=== PATIENT | male | born 1960 | race Caucasian/White ===

== ENCOUNTER 2020-01-26 19:45 | Inpatient (IN) | payer MEDICARE, MEDICAID ==
[2020-01-26 21:38] LABS: Hemoglobin 14.5 g/dL (14.0-18.0); Mean Corpuscular HGB CONC 35.1 g/dL (32.0-36.0); Mean Corpuscular Hemoglobin 33.5 pg (27.0-31.0); Mean Corpuscular Volume 95.4 fL (78.0-98.0); Mean Platelet Volume 7.4 fL (7.4-10.4); Platelet Count 141 thou/uL (130-400); RBC Distribution Width 11.9 % (11.5-14.5); Red Blood Cell (RBC) Count 4.31 mill/uL (4.70-6.10); White Blood Cell (WBC) Count 5.1 thou/uL (4.8-10.8)
[2020-01-26 21:55] LABS: ALT (SGPT) 13 U/L (8-55); AST (SGOT) 20 U/L (5-34); Albumin 4.1 g/dL (3.4-4.8); Alkaline Phosphatase 60 U/L (40-110); Anion Gap 17 mmol/L (10-20); BUN (Urea Nitrogen) 22 mg/dL (8.4-25.7); Bilirubin, Total 0.3 mg/dL (0.2-1.2); Calc. Creatinine Clearance 0 mL/min (70-130); Carbon Dioxide 18 mmol/L (23-31); Chloride 107 mmol/L (98-107); Estimated GFR-MDRD 67; Glucose 115 mg/dL (80-115); Potassium 4.6 mmol/L (3.5-5.1); Protein, Total 7.1 g/dL (5.8-8.1); Sodium 137 mmol/L (136-145)
[2020-01-26 21:57] LABS: Band 4 % (5-11); Eosinophils 2 % (0-10); Lymphocytes 24 % (21-51); MDiff Complete? YES; Monocytes 16 % (0-10); Neutrophil 51 % (42-75); Platelet Morphology Comment Appears Adequate; RBC Morphology Normal; Reactive Lymphocytes 3 % (0-10)
[2020-01-26] MEDS ORDERED: Ondansetron PF 4 MG/2 ML Vial ONE (23:24)
[2020-01-26] MEDS ORDERED: Ketorolac Tromethamine 30 MG/ML VIAL ONE (23:24)
[2020-01-26] MEDS ORDERED: Magnesium 2 GM/50 ML BAG (IN WATER) ONE (23:26)
--- NOTE | 2020-01-26 23:40 | RAD ---
Chest AP view INDICATION: History of tachycardia COMPARISON: None FINDINGS: Lungs: The lungs are clear Cardiac silhouette: The cardiomediastinal silhouette appears within normal limits. Pulmonary vasculature: Normal Pleural spaces: No pleural effusion or pneumothorax is demonstrated. Upper abdomen: No abnormality seen. Osseous structures: There is scattered degenerative and osteoarthritic change present. Additional findings: None. IMPRESSION: No acute cardiopulmonary abnormality.
[2020-01-26 23:55] LABS: Prothrombin Time 13.7 sec (12.0-14.7)
[2020-01-26 23:57] LABS: D-Dimer Test 2.1 *mcg/mL (0.27-0.43)
[2020-01-27] MEDS ORDERED: Metoprolol Tartrate 5 MG/5 ML VIAL ONE (00:28)
[2020-01-27 00:29] LABS: Magnesium 1.9 mg/dL (1.6-2.6)
[2020-01-27 00:51] LABS: CKMB 3.1 ng/mL (0-6.6)
[2020-01-27] MEDS ORDERED: cefTRIAXone\\ROCEPHIN 1 GM VIAL ONE ×2 (01:35→15:36)
[2020-01-27] MEDS ORDERED: Vancomycin 1 GM/200 ML BAG ONE ×2 (01:35→09:24)
[2020-01-27] MEDS ORDERED: Aspirin 325 MG TAB ONE (01:35)
[2020-01-27 03:10] LABS: Troponin I 0.015 ng/mL (< 0.028)
[2020-01-27] MEDS: Lactated Ringer's 1,000 ML IV SCH ×2 (03:45→16:13)
[2020-01-27 04:06] LABS: Bilirubin Negative (Negative); Blood, Urine Negative (Negative); Clarity Clear (Clear); Glucose, Urine (Dipstick) Normal (Negative); Ketone, Urine Negative (Negative); Leukocyte Negative Leu/uL (Negative); Nitrite Negative (Negative); Protein, Urine (Dipstick) Negative (Neg-Trace); Specific Gravity, Urine 1.031 (1.002-1.036); Urobilinogen Normal mg/dL (Less than 2); pH, Urine 6.5 (5.0-9.0)
[2020-01-27 04:24] LABS: Amphetamine Not Detected (NotDetected); Barbiturates Screen Not Detected (NotDetected); Benzodiazepine Screen Not Detected (NotDetected); Cocaine Metabolite Screen Not Detected (NotDetected); Medtox Control Line Valid? VALID (VALID); Medtox Reader # READER 4; Methadone Not Detected (NotDetected); Methamphetamine Not Detected (NotDetected); Opiate Screen Not Detected (NotDetected); Oxycodone Screen Not Detected (NotDetected); Phencyclidine (PCP) Not Detected (NotDetected); THC/Cannabinoid Screen Not Detected (NotDetected); Tricyclic Screen Detected (NotDetected)
[2020-01-27 06:50] LABS: Troponin I 0.012 ng/mL (< 0.028)
--- NOTE | 2020-01-27 08:23 | CT ---
PRELIMINARY REPORT/[facility]/EMERGENCY AFTER HOURS PROCEDURE: EXAM: CTA Chest with Intravenous Contrast CLINICAL HISTORY: TACHYCARDIAC AND HYPERTENSIVE IN PCP OFFICE - SENT HERE FOR EVALUATION TECHNIQUE: Axial CTA images of the chest with intravenous contrast. Three-dimensional MIP/volume rendered reform ations were performed. CONTRAST: With; ISOVUE 370,100mL COMPARISON: None provided. FINDINGS: The pulmonary arterial tree is nicely opacified, and no filling defect or cutoff is seen. Main pulmonary artery is 2.5 cm in maximal diameter. There is reflux of contrast into the IVC and th e hepatic veins. The ventricular ratio is less than 1 and there is borderline prominence of the righ t atrium. The intraventricular septum is not deformed. Small curvilinear subpleural densities are p resent in both lungs. The thoracic aorta is not optimally opacified, but shows no acute abnormality. There is mild tortuos ity and ectasia. The ascending portion measures 3.9 cm in diameter. Descending aorta is 3.1 cm. No rmal sized lymph nodes are identified in the mediastinal and hilar regions. The esophagus is grossly negative. There is no significant pericardial effusion. The heart is overall borderline in size. Central airways are patent. Secretions are present in the right mainstem bronchus extending into the right long. There is significant concentric thickening of the small airway reinoso on both sides. Mu cous plugging and is present, especially in the right middle lobe which is partially collapsed. Ther e is mild pleural thickening on both sides. No consolidation, pleural fluid or pneumothorax is seen. Scattered air cysts are present, to include a component of labs. Lung volumes are estimated overal l modestly prominent, but the hemidiaphragms remain convex. In the visualized upper abdomen, no acute abnormality is seen. There is a moderate amount of food in the stomach. On bone windows, no acute osseous abnormality is evident. There are multiple old rib fractures, 1 of which may have a pseudoarticulation on the right (53/3). IMPRESSION: 1. No PE. 2. Conflicting evidence for pulmonary hypertension. 3. Tortuosity and ectasia of the thoracic aorta, but no acute aortic abnormality. 4. Considerable small airway disease on both sides, with partial collapse of the right middle lobe a nd secretions and mucous plugging in the right lung. 5. Borderline hyperinflation with scattered air cysts. No pneumothorax. ELECTRONICALLY SIGNED BY: Raul Lima MD Jan 27, 2020 2:12:35 AM ACID PATROLLER This report is intended for review by the ordering physician only, in accordance of law. If you recei ve this report in error, please call [facility] at [phone]. FINAL REPORT CT PULMONARY ANGIOGRAM WITH IV CONTRAST AND 3D POST PROCESSING: I agree with the preliminary report given by Dr. Raul Lima of [facility]. POS: OFF
[2020-01-27 09:34] LABS: SARS-CoV-2 MS2 Positive; SARS-CoV-2 N Gene Negative; SARS-CoV-2 S Gene Negative; SARS-CoV-2 by NAA Not Detected (NotDetected); SARS-CoV-2 orf1ab Negative
[2020-01-27] MEDS ORDERED: Metoprolol Tartrate 50 MG TAB PO SCH (10:00)
[2020-01-27] MEDS ORDERED: Vancomycin 1 GM in Premix Bag 1 BAG IVPB SCH (10:00)
--- NOTE | 2020-01-27 10:07 | PDOC.HHP ---
Hospitalist HPI - History of Present Illness History of Present Illness: ADMISSION DATE: 01/27/2020 TIME OF ASSESSMENT: 09:15 PRIMARY CARE PHYSICIAN: Karolina CHIEF COMPLAINT: Fast heart rate HPI: Patient is a 59-year-old male past medical history significant for HIV, cardiac arrhythmias, and IV drug use. He presents to the ER today after he went to his primary care physician for a physical and was found that he was tachycardic. He denied any chest pain, shortness of breath, lightheadedness, dizziness. He did not realize his heart rate was going fast until the physician told him after they completed vital signs. He states that this has happened in the past and he is on metoprolol to regulate his blood pressure and heart rate although he does not know the dosage. He states that he is not on any anticoa gulant as he has a history of falling, currently having to use a walker to ambulate. It has been many years since he has seen a rn peritoneal dialysis. Patient does state that he has had an ongoing nonproductive cough and endorses orthopnea and pedal edema. He denies any fever or contact with sick persons. Patient does have a history of IV methamphetamine and cocaine use along with heavy alcohol use and heavy tobacco use. He has not used any illicit drugs in 3 to 4 months and states he has not had any alcohol or tobacco in the past 2 weeks. Patient does state he is compliant with his HIV and blood pressure medication. ED COURSE: Vital Signs: Blood pressure 163/130, pulse 111, respiratory rate 17, temperature 98.6 oral, O2 saturation 100% on room air Today in the ER they completed a chest and thorax CTA, chest x-ray, lab work, and medication ministration. He was administered ceftriaxone 1 g IV, vancomycin 1 g IV, aspirin 325 mg p.o., magnesium 2 g IV, metoprolol tartrate 2.5 mg IV, 1 L normal saline, Zofran 4 mg IV, ketorolac 15 mg IV. PAST MEDICAL HISTORY: Hypertension, cirrhosis, pancreatitis, HIV, irregular heart rhythm, anxiety, depression PAST SURGICAL HISTORY: Back surgeries, colostomy and reversal SOCIAL HISTORY: Patient currently staying at [facility]. Has a history of metha mphetamine and cocaine use but has not used in 3 to 4 years. Has a heavy history of alcohol use and has not used in 2 weeks. He states he would drink "whatever he can get his hands on" in the past. Heavy smoking history, 35-year use of at least a pack per day, has not smoked in 2 weeks. Patient uses a walker to ambulate and has frequent falls. FAMILY HISTORY: Unknown ALLERGIES: Cardene CURRENT MEDICATIONS: Unknown, calling PCP to verify meds Patient knows he takes metoprolol but does not know the dosage Hospitalist ROS - Review of Systems Respiratory: reports: cough Cardiovascular: reports: palpitations, orthopnea, edema All other systems reviewed; all pertinent +/- noted in HPI/Subj - Medication Medications: Active Medications Generic Name Dose Route Start Last Admin Trade Name Freq PRN Reason Stop Dose Admin Lactated Ringer's 1,000 mls @ 125 mls/hr 01/27/20 03:45 01/27/20 03:45 Lactated Ringer's IV 01/27/20 15:45 1,000 mls .Q8H SUKUMAR Administration - Exam General Appearance: NAD, awake alert Eye: PERRL ENT: normocephalic atraumatic Heart: RRR, no murmur, no gallops, no rubs, normal peripheral pulses Respiratory: normal chest expansion, no tachypnea, rhonchi Gastrointestinal: soft, non-tender, normal bowel sounds Gastrointestinal - other findings: Reducible hernia Extremities: no edema Neurological: no focal deficits Musculoskeletal: generalized weakness Psychiatric: A&O x 3 Hospitalist Results - Labs Result Diagrams: 01/27/20 10:19 01/27/20 10:19 Lab results: WBC 5.1 thou/uL (4.8-10.8) 01/26/20 21:24 Hgb 14.5 g/dL (14.0-18.0) 01/26/20 21:24 Hct 41.1 % (42.0-52.0) L 01/26/20 21:24 MCV 95.4 fL (78.0-98.0) 01/26/20 21:24 Plt Count 141 thou/uL (130-400) 01/26/20 21:24 Band Neuts % (Manual) 4 % (5-11) L 01/26/20 21:24 Sodium 137 mmol/L (136-145) 01/26/20 21:24 Potassium 4.6 mmol/L (3.5-5.1) 01/26/20 21:24 Chloride 107 mmol/L (98-107) 01/26/20 21:24 Carbon Dioxide 18 mmol/L (23-31) L 01/26/20 21:24 BUN 22 mg/dL (8.4-25.7) 01/26/20 21:24 Creatinine 1.11 mg/dL (0.7-1.3) 01/26/20 21:24 Glucose 115 mg/dL (80-115) 01/26/20 21:24 Lactic Acid 1.0 mmol/L (0.5-2.2) 01/26/20 23:50 Calcium 9.0 mg/dL (7.8-10.44) 01/26/20 21:24 Total Bilirubin 0.3 mg/dL (0.2-1.2) 01/26/20 21:24 AST 20 U/L (5-34) 01/26/20 21:24 ALT 13 U/L (8-55) 01/26/20 21:24 Alkaline Phosphatase 60 U/L (40-110) 01/26/20 21:24 CK-MB (CK-2) 3.1 ng/mL (0-6.6) 01/26/20 23:50 Troponin I 0.012 ng/mL (< 0.028) 01/27/20 05:52 Serum Total Protein 7.1 g/dL (5.8-8.1) 01/26/20 21:24 Albumin 4.1 g/dL (3.4-4.8) 01/26/20 21:24 Lipase 33 U/L (8-78) 01/26/20 23:50 Urine Ketones Negative mg/dL (Negative) 01/27/20 03:33 Urine Blood Negative (Negative) 01/27/20 03:33 Urine Nitrite Negative (Negative) 01/27/20 03:33 Ur Leukocyte Esterase Negative Sonal/uL (Negative) 01/27/20 03:33 - Radiology Interpretation Chest x-ray Status: image reviewed by me, report reviewed by me Additional Comment: IMPRESSION: No acute cardiopulmonary abnormality. CT scan - chest Status: image reviewed by me, report reviewed by me Additional Comment: Impression: 1. No PE 2. Conflicting evidence for pulmonary hypertension 3. Tortuosity and ectasia of the thoracic aorta but no acute aortic abnormality 4. Considerable small airway disease on both sides with partial collapse of the right middle lobe and secretions and mucous plugging in the right lung 5. Borderline hyper inflation with scattered air status, no pneumothorax Hospitalist H&P A/P - Plan Plan: #Tachycardia Asymptomatic, pulse currently in the 80s Cardiology consultation Echo pending Monitor on telemetry #Elevated troponin Denies chest pain or SOB Possibly elevated from demand with tachycardia Continue to trend x3 #Hypertension Restart home medications once reconciled Monitor q4hr #Atypical pneumonia IV antibiotics ID consult Blood and urine cultures obtained #HIV CD4 and labs ordered Infectious disease consult requested #Tobacco and alcohol recent history, illicit drug use history Monitor for withdrawals CODE STATUS: Full Surrogate decision-maker is his daughter, Keiry Patient and plan discussed with Dr. Urrutia
[2020-01-27] MEDS ORDERED: Iopamidol-370 76% 500 ML 1 ML ONE (10:15)
[2020-01-27 10:34] LABS: #Eosinphils 0.1 thou/uL (0.0-0.7); #Lymphocytes 1.5 thou/uL (1.20-3.40); #Monocytes 0.5 thou/uL (0.11-0.59); #Neutrophils 2.5 thou/uL (1.40-6.50); %Basophils 0.7 % (0.0-1.0); %Eosinophils 2.5 % (0.0-10.0); %Lymphocytes 32.8 % (21.0-51.0); %Monocytes 10.1 % (0.0-10.0); %Neutrophils 53.9 % (42.0-75.0); Hemoglobin 14.9 g/dL (14.0-18.0); Mean Corpuscular HGB CONC 34.3 g/dL (32.0-36.0); Mean Corpuscular Hemoglobin 33.6 pg (27.0-31.0); Mean Corpuscular Volume 97.9 fL (78.0-98.0); Mean Platelet Volume 7.3 fL (7.4-10.4); Platelet Count 126 thou/uL (130-400); RBC Distribution Width 11.8 % (11.5-14.5); Red Blood Cell (RBC) Count 4.43 mill/uL (4.70-6.10); White Blood Cell (WBC) Count 4.6 thou/uL (4.8-10.8)
[2020-01-27 10:54] LABS: Anion Gap 13 mmol/L (10-20); BUN (Urea Nitrogen) 18 mg/dL (8.4-25.7); Calc. Creatinine Clearance 0 mL/min (70-130); Calcium 8.8 mg/dL (7.8-10.44); Carbon Dioxide 24 mmol/L (23-31); Chloride 105 mmol/L (98-107); Estimated GFR-MDRD 68; Glucose 121 mg/dL (80-115); Potassium 4.2 mmol/L (3.5-5.1); Sodium 138 mmol/L (136-145)
[2020-01-27 11:18] LABS: HBCM Index 0.06 S/CO (0-0.79); HBSAg Index 0.18 S/CO (0-0.99); Hep A IgM AB Non-Reactive (NonReactive); Hep A IgM S/CO 0.22 S/CO (0-0.79); Hep B Surf Ag Non-Reactive S/CO (NonReactive); Hepatitis B Core IgM Abs Non-Reactive (NonReactive)
[2020-01-27 11:22] LABS: Hep C IgG Ab Reflex HepC Qnt (NonReactive); Hep C Index 13.76 S/CO (0-0.79)
[2020-01-27] MEDS ORDERED: cefTRIAXone\\ROCEPHIN 1 GM in Sodium Chloride 0.9% 100 ML IVPB SCH (13:00)
[2020-01-27] MEDS ORDERED: Metoprolol Tartrate 50 MG TAB ONE (15:37)
[2020-01-27] MEDS: Metoprolol Tartrate 50 MG TAB PO SCH (21:41)
[2020-01-27 22:02] VITALS: BMI 26.4
[2020-01-27 23:37] LABS: Legionella Urinary Ag Negative (Negative); Strep pneumo Urine Ag NEGATIVE (NEGATIVE)
[2020-01-28 05:04] LABS: #Eosinphils 0.2 thou/uL (0.0-0.7); #Lymphocytes 1.6 thou/uL (1.20-3.40); #Monocytes 0.7 thou/uL (0.11-0.59); #Neutrophils 2.5 thou/uL (1.40-6.50); %Basophils 0.5 % (0.0-1.0); %Eosinophils 3.5 % (0.0-10.0); %Lymphocytes 32.1 % (21.0-51.0); %Monocytes 13.5 % (0.0-10.0); %Neutrophils 50.5 % (42.0-75.0); Hemoglobin 14.3 g/dL (14.0-18.0); Mean Corpuscular HGB CONC 34.8 g/dL (32.0-36.0); Mean Corpuscular Hemoglobin 33.4 pg (27.0-31.0); Mean Corpuscular Volume 95.9 fL (78.0-98.0); Mean Platelet Volume 7.5 fL (7.4-10.4); Platelet Count 137 thou/uL (130-400); Red Blood Cell (RBC) Count 4.29 mill/uL (4.70-6.10)
[2020-01-28 05:21] LABS: Anion Gap 12 mmol/L (10-20); BUN (Urea Nitrogen) 16 mg/dL (8.4-25.7); Calc. Creatinine Clearance 102 mL/min (70-130); Calcium 8.8 mg/dL (7.8-10.44); Carbon Dioxide 23 mmol/L (23-31); Chloride 106 mmol/L (98-107); Estimated GFR-MDRD 81; Glucose 86 mg/dL (80-115); Potassium 4.1 mmol/L (3.5-5.1); Sodium 137 mmol/L (136-145)
[2020-01-28] MEDS: Aspirin Chewable 81 MG TAB PO SCH (08:52)
[2020-01-28] MEDS: Metoprolol Tartrate 50 MG TAB PO SCH ×2 (08:53→20:24)
--- NOTE | 2020-01-28 11:54 | PDOC.HOSPP ---
- Subjective Encounter Date: 01/28/20 Encounter Time: 11:52 Subjective: 59-year-old patient who is admitted to the hospital after he was sent in due to tachycardia. He is largely asymptomatic. His tachycardia was discovered at a routine follow-up visit with his primary care provider. He does have significant history for substance abuse with a drug of choice being methamphetamine, he also has a history of alcohol abuse, he has been known to be a smoker but he is in the process of quitting he says. At any rate he has been afebrile. He had a CT of the chest obtained which did not show any evidence of pulmonary embolus. He does have suspected airway disease. He is on IV empiric antibiotics and cultures were collected on admission. - Objective Vital Signs & Weight: Vital Signs (12 hours) Temp Pulse Resp BP Pulse Ox 01/28/20 08:00 96 01/28/20 07:00 98.6 F 100 18 145/98 H 96 01/28/20 03:06 98.2 F 61 18 142/86 H 95 Weight Weight 191 lb 11.2 oz I&O: 01/27/20 01/28/20 01/29/20 06:59 06:59 06:59 Intake Total 580 Output Total 1300 Balance -720 Result Diagrams: 01/28/20 04:09 01/28/20 04:09 Radiology Reviewed by me: Yes EKG Reviewed by me: Yes Hospitalist ROS - Review of Systems ROS unobtainable: due to mental status Constitutional: reports: weakness, malaise Respiratory: reports: shortness of breath, SOB with excertion - Medication Medications: Active Medications Generic Name Dose Route Start Last Admin Trade Name Ariela PRN Reason Stop Dose Admin Aspirin 81 mg 01/28/20 09:00 01/28/20 08:52 Aspirin Chewable 81 Mg Tab PO 81 mg DAILY SUKUMAR Administration Doxycycline Hyclate 100 mg/ 100 mls @ 100 mls/hr 01/28/20 06:00 01/28/20 06:49 Sodium Chloride IVPB 100 mls 0600,1800 SUKUMAR Administration Metoprolol Tartrate 50 mg 01/27/20 21:00 01/28/20 08:53 Metoprolol Tartrate 50 Mg Tab PO 50 mg BID SUKUMAR Administration - Exam General Appearance: awake alert, ill appearing Eye: PERRL, anicteric sclera ENT: normocephalic atraumatic, no oropharyngeal lesions, moist mucosa Neck: supple, symmetric, no JVD, no thyromegaly, no lymphadenopathy Heart: RRR, no murmur, no gallops, no rubs, normal peripheral pulses Respiratory: CTAB, no wheezes, no rales, no ronchi, normal chest expansion Gastrointestinal: soft, non-tender, non-distended, normal bowel sounds Neurological: cranial nerve grossly intact Musculoskeletal: normal tone Psychiatric: normal affect, normal behavior, A&O x 3 Hosp A/P (1) Tachycardia Code(s): R00.0 - TACHYCARDIA, UNSPECIFIED Status: Acute Plan: Cardiology was asked to evaluate him for the sinus tachycardia. Formal consult is still pending. Echocardiogram will be obtained. (2) History of substance abuse Code(s): F19.11 - OTHER PSYCHOACTIVE SUBSTANCE ABUSE, IN REMISSION Status: Acute Plan: He is trying to quit. (3) Tobacco dependence Code(s): F17.200 - NICOTINE DEPENDENCE, UNSPECIFIED, UNCOMPLICATED Status: Acute Plan: He was counseled about smoking cessation's. - Plan old records reviewed/req, PT/OT, social sciences professor
--- NOTE | 2020-01-28 14:51 | CON ---
DATE OF CONSULTATION: 01/28/2020 REASON FOR CONSULTATION: HIV and hepatitis C seropositive status with tachyarrhythmia. HISTORY OF PRESENT ILLNESS: A 59-year-old who lives around [facility] and has a longstanding history of HIV seropositive status since 1983. He also has been hepatitis C positive, but was treated and cured of hepatitis C with one of the new direct acting antiviral drugs recently. He has been on antiretroviral therapy for decades now and the most recent regimen is Biktarvy and according to the patient, his viral load was suppressed as recently as a few months ago. He does not recall his CD4 cell count. He has been admitted to [facility] and has not smoked in 2 weeks and there is a question about him using drugs again, but that he denied any relapse of meth or cocaine use. The patient was found to have been tachycardic by a routine check from the staff at the [facility] and he was not feeling any different then, otherwise would not have come to the emergency room. On arrival, his BP was 150/109, pulse 122, respirations 20, temperature 97.8, and O2 saturation 99% on room air. He did not appear in distress, but he was in some mild pain, was alert, oriented. Lungs were clear. Heart exam normal except for tachycardia which was regular. Abdomen soft and a little bit of spine tenderness. PAST MEDICAL HISTORY: Chronic hep C, treated and cured reportedly recently. Longstanding HIV infection since 1983. He does not recall his CD4 cell count. His viral load was undetectable recently, on Biktarvy. Hypertension, polysubstance use, mostly methamphetamine. Apparently, he had a colostomy in the past, which was taken down. It is not clear the reason for it. SOCIAL HISTORY: He lives in the [facility]. He is here because of rehab, admitted to [facility]. Quit smoking 2 weeks ago. ALLERGIES: CODEINE, NOT A TRUE ALLERGY. MEDICATION LIST: At the moment, he is on 1. Doxycycline. 2. Metoprolol. At home, he takes 1. Bictegravir. 2. BuSpar. 3. Seroquel. 4. Gabapentin. 5. Enalapril. 6. Metoprolol. FAMILY HISTORY: Noncontributory. PHYSICAL EXAMINATION: VITAL SIGNS: Temperature normal, BP 140/98, heart rate 100, respiratory rate 18, and O2 saturation 96%. SKIN: With tattoos mostly in the chest area. Peripheral IV access. He is voiding spontaneously in the urinal. LYMPH: No lymphadenopathy. HEENT: Ocular movements conjugate. Oral cavity with no [place] teeth remaining. NECK: Supple, no jugular vein distention. LUNGS: Symmetric air entry. A few rhonchi here and there. HEART: S1, S2, regular rate, no murmurs. ABDOMEN: Soft, not distended or tender. No ascites, no bladder distention. EXTREMITIES: No joint inflammatory activity. Pulses 1+ in dorsalis pedis. NEUROLOGIC: Nonfocal, awake, oriented, follows commands. Speech normal. LABORATORY STUDIES: White cell count is at 5.0, hemoglobin 14, platelets 137 with normal differential. INR 1.0. Creatinine 0.95. Liver profile normal. Troponin 0.033. Albumin 4.1, globulin 3.0, lipase 33. TSH 0.69. Urinalysis was normal. Toxic screen only tricyclics detected. SARS-CoV2 PCR negative. Hepatitis C antibody obviously positive. Legionella antigen and strep pneumoniae antigen negative. ASSESSMENT: 1. Longstanding HIV infection, well controlled according to his report with a suppressed viral load as recently as 2 months ago. He does not recall his CD4 cell count. He is currently on Biktarvy for ART. 2. Chronic hepatitis C, reportedly cured with direct antiviral combination. 3. Polysubstance use, being admitted to [facility] for rehab. 4. Tachyarrhythmia identified. DISCUSSION: The CT chest showed some tortuosity and ectasia of thoracic aorta and some small airway disease probably related to his drug use and smoking. Some mucus plugging noted, but no pneumonitis. At this point, I would recommend discontinuation of doxycycline. We will resume antiretroviral therapy with the formulary drugs, Truvada and Isentress and once he gets back to [facility], he can resume his Biktarvy as previously. I expect his hepatitis C viral load to be undetectable, likewise his HIV viral load. Does not look like he will require any prophylaxis, but will have to wait on CD4 cell count. Job ID: [id number]
[2020-01-28 15:16] LABS: %CD4 (Helper/Inducer) 21.6 % (30.8-58.5); Absolute CD4 324 /uL (359-1519); Lymphocytes/Gated Cell Count 1.5 x10E3/uL (0.7-3.1); Total Lymphocyte 33 % (Not Estab.); WBC Total Count 4.6 x10E3/uL (3.4-10.8)
[2020-01-28] MEDS ORDERED: Lisinopril 2.5 MG TAB PO SCH (18:15)
[2020-01-28] MEDS: Naproxen 500 MG TAB PO SCH (20:20)
[2020-01-28] MEDS: busPIRone HCl 10 MG TAB PO SCH (20:22)
[2020-01-28] MEDS: Gabapentin 300 MG CAP PO SCH (20:23)
[2020-01-28] MEDS: Raltegravir Potassium 400 MG TAB PO SCH (20:24)
[2020-01-29 03:56] LABS: #Basophils 0.1 thou/uL (0.0-0.2); #Eosinphils 0.2 thou/uL (0.0-0.7); #Lymphocytes 1.9 thou/uL (1.20-3.40); #Monocytes 0.8 thou/uL (0.11-0.59); #Neutrophils 3.1 thou/uL (1.40-6.50); %Basophils 1.6 % (0.0-1.0); %Eosinophils 3.4 % (0.0-10.0); %Lymphocytes 31.6 % (21.0-51.0); %Monocytes 12.7 % (0.0-10.0); %Neutrophils 50.7 % (42.0-75.0); Hemoglobin 15.6 g/dL (14.0-18.0); Mean Corpuscular HGB CONC 35.4 g/dL (32.0-36.0); Mean Corpuscular Hemoglobin 33.7 pg (27.0-31.0); Mean Corpuscular Volume 95.1 fL (78.0-98.0); Mean Platelet Volume 8.3 fL (7.4-10.4); Platelet Count 150 thou/uL (130-400); Red Blood Cell (RBC) Count 4.64 mill/uL (4.70-6.10)
[2020-01-29 04:16] LABS: Anion Gap 15 mmol/L (10-20); BUN (Urea Nitrogen) 18 mg/dL (8.4-25.7); Calc. Creatinine Clearance 97 mL/min (70-130); Carbon Dioxide 19 mmol/L (23-31); Chloride 106 mmol/L (98-107); Estimated GFR-MDRD 78; Glucose 93 mg/dL (80-115); Potassium 4.2 mmol/L (3.5-5.1); Sodium 136 mmol/L (136-145)
[2020-01-29] MEDS: Aspirin Chewable 81 MG TAB PO SCH (09:50)
[2020-01-29] MEDS: Gabapentin 300 MG CAP PO SCH ×2 (09:50→21:16)
[2020-01-29] MEDS: Lisinopril 2.5 MG TAB PO SCH (09:51)
[2020-01-29] MEDS: busPIRone HCl 10 MG TAB PO SCH ×2 (09:52→21:16)
[2020-01-29] MEDS: Emtricitabine/Tenofovir 200-300 MG TAB PO SCH (09:52)
[2020-01-29] MEDS: Metoprolol Tartrate 50 MG TAB PO SCH ×2 (09:52→21:15)
[2020-01-29] MEDS: Raltegravir Potassium 400 MG TAB PO SCH ×2 (09:52→21:16)
--- NOTE | 2020-01-29 13:54 | PDOC.HOSPP ---
- Subjective Encounter Date: 01/29/20 Encounter Time: 13:52 Subjective: Patient was seen and evaluated earlier today. This is a 59-year-old admitted to the hospital after he was noted to have tachycardia by the clinic that he visited. He was started on rate control medication and he seems to be improving. EPS collar padder blindstitch were asked to see him and they did see him and make some recommendations. - Objective Vital Signs & Weight: Vital Signs (12 hours) Temp Pulse Resp BP Pulse Ox 01/29/20 09:51 108 H 01/29/20 08:00 98.6 F 116 H 18 131/98 H 95 01/29/20 03:31 98.7 F 108 H 20 103/69 95 Weight Weight 186 lb 12.8 oz I&O: 01/28/20 01/29/20 01/30/20 06:59 06:59 06:59 Intake Total 580 480 Output Total 1300 800 Balance -720 -320 Result Diagrams: 01/29/20 03:16 01/29/20 03:16 Radiology Reviewed by me: Yes EKG Reviewed by me: Yes Hospitalist ROS - Review of Systems Constitutional: reports: weakness, malaise Respiratory: reports: shortness of breath Cardiovascular: reports: palpitations - Medication Medications: Active Medications Generic Name Dose Route Start Last Admin Trade Name Freq PRN Reason Stop Dose Admin Aspirin 81 mg 01/28/20 09:00 01/29/20 09:50 Aspirin Chewable 81 Mg Tab PO 81 mg DAILY SUKUMAR Administration Buspirone HCl 15 mg 01/28/20 21:00 01/29/20 09:52 Buspirone Hcl 10 Mg Tab PO 15 mg BID SUKUMAR Administration Emtricitabine/Tenofovir 1 tab 01/29/20 09:00 01/29/20 09:52 Emtricitabine/Tenofovir 200-300 Mg Tab PO 1 tab DAILY SUKUMAR Administration Gabapentin 300 mg 01/28/20 21:00 01/29/20 09:50 Gabapentin 300 Mg Cap PO 300 mg BID SUKUMAR Administration Lisinopril 2.5 mg 01/29/20 09:00 01/29/20 09:51 Lisinopril 2.5 Mg Tab PO 2.5 mg DAILY SUKUMAR Administration Metoprolol Tartrate 50 mg 01/27/20 21:00 01/29/20 09:52 Metoprolol Tartrate 50 Mg Tab PO 50 mg BID SUKUMAR Administration Naproxen 250 mg 01/28/20 21:00 01/28/20 20:20 Naproxen 500 Mg Tab PO 250 mg HS SUKUMAR Administration Quetiapine Fumarate 300 mg 01/28/20 21:00 01/29/20 09:51 Quetiapine Fumarate 300 Mg Tab PO 300 mg BID SUKUMAR Administration Raltegravir 400 mg 01/28/20 21:00 01/29/20 09:52 Raltegravir Potassium 400 Mg Tab PO 400 mg BID SUKUMAR Administration - Exam General Appearance: awake alert Eye: PERRL, anicteric sclera ENT: normocephalic atraumatic, no oropharyngeal lesions, moist mucosa Neck: supple, symmetric, no JVD, no thyromegaly, no lymphadenopathy Heart: RRR, no murmur, no gallops, no rubs, normal peripheral pulses Respiratory: CTAB, no wheezes, no rales, no ronchi, normal chest expansion Gastrointestinal: soft, non-tender, non-distended Neurological: cranial nerve grossly intact, normal sensation to touch Psychiatric: normal affect, normal behavior, A&O x 3 Hosp A/P (1) Tachycardia Code(s): R00.0 - TACHYCARDIA, UNSPECIFIED Status: Acute (2) History of substance abuse Code(s): F19.11 - OTHER PSYCHOACTIVE SUBSTANCE ABUSE, IN REMISSION Status: Acu te (3) Tobacco dependence Code(s): F17.200 - NICOTINE DEPENDENCE, UNSPECIFIED, UNCOMPLICATED Status: Acute - Plan old records reviewed/req, PT/OT, out of bed/ambulate #1. Tachycardia. Unclear etiology. He seems reasonably rate controlled since admission. We appreciate EPS collar padder blindstitch. #2. Tobacco dependence. 3. History of substance abuse.
[2020-01-29] MEDS: Naproxen 500 MG TAB PO SCH (21:15)
[2020-01-30] MEDS: Raltegravir Potassium 400 MG TAB PO SCH (09:02)
[2020-01-30] MEDS: Gabapentin 300 MG CAP PO SCH (09:02)
[2020-01-30] MEDS: Metoprolol Tartrate 50 MG TAB PO SCH (09:03)
[2020-01-30] MEDS: Aspirin Chewable 81 MG TAB PO SCH (09:03)
[2020-01-30] MEDS: Lisinopril 2.5 MG TAB PO SCH (09:03)
[2020-01-30] MEDS: busPIRone HCl 10 MG TAB PO SCH (09:03)
[2020-01-30] MEDS: Emtricitabine/Tenofovir 200-300 MG TAB PO SCH (09:03)
--- NOTE | 2020-01-30 10:43 | PDOC.DS.DS ---
Provider - Provider Date of Admission: 01/27/20 01:11 Date of Discharge: 01/30/20 Admitting Provider: Donald Evans Consultations: Cardiology Primary Care Physician: Ladi Crocker MD Course - Hospital Course Hospital Course: This is a 59-year-old patient who was sent in from where he was getting therapy for alcohol and substance abuse due to him being tachycardic. He was admitted to the hospital for shrimp cleaner evaluation. He was seen by the EPS shrimp cleaner who recommended rate control. He originally was metoprolol XL daily but this was changed to tartrate 3 times daily. Her heart rate has become well controlled as a result. An echocardiogram was obtained that showed the following: His left ventricular ejection fraction was around 30 to 35%, his left atrium was dilated, he had evidence of mild to moderate mitral regurgitation and tricuspid regurgitations. Patient has remained clinically stable. He was seen briefly by the ID services who resume his HIV medications. At this point in time patient has reached optimal hospital benefit and he is going to be discharged today. He will follow up with shrimp cleaner in his hometown in [facility]. Pertinent Studies: He had an echocardiogram that showed a decreased ejection fraction around 30%. Resuscitation Status: 01/27/20 09:32 Resuscitation Status Routine Co-Sign Provider: Resuscitation Status: FULL: Full Resuscitation Discussed with: pt - Labs Lab Results: 01/29/20 03:16 01/29/20 03:16 Abnormal Lab Results - Last 48 hrs 01/27/20 10:19: % T-[place]/Inducer 21.6 L, Absolute CD4 Count 324 L 01/29/20 03:16: Carbon Dioxide 19 L 01/29/20 03:16: RBC 4.64 L, MCH 33.7 H, Monocytes % 12.7 H, Basophils % 1.6 H, Monocytes # 0.8 H Microbiology - Entire Visit 01/26/20 23:50 Venous blood - Right Hand Blood Culture - Preliminary NO GROWTH AT 48 HOURS 01/26/20 23:47 Venous blood - Right Arm Blood Culture - Preliminary NO GROWTH AT 48 HOURS 01/27/20 03:31 Urine voided Urine Culture - Final NO GROWTH AT 36 HOURS - Physical Exam Vitals: Vital Signs (12 hours) Temp Pulse Resp BP Pulse Ox 01/30/20 09:03 120 H 01/30/20 08:00 97.5 F L 120 H 18 120/89 96 01/30/20 03:03 97.4 F L 91 16 108/77 93 L 01/30/20 00:00 90 Weight Weight 188 lb 3.2 oz Physical Exam: The patient was seen and examined on the day of discharge. Problem - Problem (1) Tachycardia Code(s): R00.0 - TACHYCARDIA, UNSPECIFIED Status: Acute (2) History of substance abuse Code(s): F19.11 - OTHER PSYCHOACTIVE SUBSTANCE ABUSE, IN REMISSION Status: Acute (3) Tobacco dependence Code(s): F17.200 - NICOTINE DEPENDENCE, UNSPECIFIED, UNCOMPLICATED Status: Acute Plan - Discharge Medications Prescriptions: Digoxin [Lanoxin] 0.125 mg PO DAILY #30 tab Metoprolol Tartrate [Lopressor] 50 mg PO BID #60 tab Home Medications: Medication Instructions Recorded Confirmed Type Bictegrav/Emtricit/Tenofov Ala 1 tab PO DAILY 01/27/20 01/27/20 History [Biktarvy 50-200-25 mg Tablet] Enalapril Maleate 2.5 mg PO DAILY 01/27/20 01/27/20 History Gabapentin 300 mg PO BID 01/27/20 01/27/20 History Naproxen 250 mg PO HS 01/27/20 01/27/20 History QUEtiapine Fumarate [SEROquel] 300 mg PO BID 01/27/20 01/27/20 History busPIRone HCl [Buspirone HCl] 1 tab PO BID 01/27/20 01/27/20 History Digoxin [Lanoxin] 0.125 mg PO DAILY #30 tab 01/30/20 Rx Emtricitabine/Tenofovir [Truvada] 1 tab PO DAILY tab 01/30/20 Rx Lisinopril [Zestril] 2.5 mg PO DAILY tab 01/30/20 Rx Metoprolol Tartrate [Lopressor] 50 mg PO BID #60 tab 01/30/20 Rx QUEtiapine Fumarate [SEROquel] 300 mg PO BID tab 01/30/20 Rx Raltegravir Potassium [Isentress] 400 mg PO BID tab 01/30/20 Rx busPIRone HCl [Buspar] 15 mg PO BID tab 01/30/20 Rx Allergies: codeine Allergy (Verified 01/27/20 22:06) PER ER NOTES - Discharge Instructions Activity:: Activity as Tolerated Nourishment:: Heart Healthy Diet Therapies:: Not Applicable Equipment/Supplies:: Not Applicable - Follow up Plan Referrals: Ladi Crocker MD [Primary Care Provider] - 7 Days (please call to schedule a follow up appoint with your PCP for the next 7 days. Please bring your discharge packet and your current medications with you to your appointment.) Disposition: HOME Quality - Care Measures CORE MEASURES:: N/A
--- NOTE | 2020-01-30 12:55 | PQF ---
CLINICAL DOCUMENTATION CLARIFICATION FORM: Dear Dr. Jonny Aden Date: 01/30/20 1232 Please exercise your independent, professional judgment in responding to the clarification form. Clinical indicators are provided on the bottom of this form for your review. Please check appropriate box(es) to clarify if the following diagnosis has been ruled in our ruled out: Atypical Pneumonia [ ] Ruled in diagnosis [ ] Continue to treat [ ] Resolved [ x] Ruled out diagnosis [ ] Improving [ ] Cannot rule out diagnosis [ ] Other diagnosis [ ] Unable to determine In addition, please specify: Present on Admission (POA): [ ] Yes [ ] No [ ] Unable to determine For continuity of documentation, please document condition throughout progress notes and discharge summary. Thank You. To be completed by CDI/Coding staff for physician review: CLINICAL INDICATORS - SIGNS / SYMPTOMS / LABS / RESULTS AND LOCATION IN MR Pt does state that he has had an ongoing nonproductive cough.Plan: Atypical Pneumonia, HTN, Tachycardia, Elevated Troponin, HIV ( H&P/ [place]) 01/26 Suspected airway disease (PN/[place]) 01/27 Partial collapse right middle lobe, secretions and mucous plugging in the right lung (CTA/ CHEST) 01/26 No further mention of Pneumonia RISK FACTORS / RESULTS AND LOCATION IN MR Hx of HIV, heavy smoking hx ( H&P/ [place]) 01/26 TREATMENTS / RESULTS AND LOCATION IN MR Rocephin IV (01/26) Doxycycline IV ( 01/27 present) Thank you! CDS Signature: Xena Diamond RN Phone #:[phone] Date: 01/30/2020 This is a permanent part of the Medical Record [facility]
[2020-01-30 13:38] VITALS: BP 125/86; TEMP 97.2
--- NOTE | 2020-01-30 16:38 | PDOC.EP ---
- Subjective Date: 01/30/20 Time: 09:00 Interval History: Pt continues to be minimally symptomatic. AFL rates variable. - Review of Systems ROS unobtainable: due to endotracheal tube, due to mental status - Objective Allergies/Adverse Reactions: Allergies Allergy/AdvReac Type Severity Reaction Status Date / Time codeine Allergy Verified 01/27/20 22:06 Vital Signs & Weight: Vital Signs Temp Pulse Resp BP Pulse Ox 01/30/20 12:00 97.2 F L 93 17 125/86 94 L 01/30/20 09:03 120 H 01/30/20 08:00 97.5 F L 120 H 18 120/89 96 Weight 188 lb 3.2 oz I/O: I/O 01/29/20 01/30/20 01/31/20 06:59 06:59 06:59 Intake Total 480 1120 Output Total 800 1275 Balance -320 -155 - Physical Exam General: alert & oriented x3, no apparent distress HEENT: normocephaly Cardiology: irregularly irregular Lungs: clear to auscultation Neurology: grossly intact Abdomen: active bowel sounds - Chadsvasc Risk factors Congestive heart failure: 1 Hypertension: 1 Risk Score: 2 - Labs Result Diagrams: 01/29/20 03:16 01/29/20 03:16 - EKG Interpretation EKG Method: Telemetry EKG shows: Typical atrial flutter - Assessment/Plan Assessment/Plan: 1. Newly found typical atrial flutter. 2. Newly found Cardiomyopathy. 3. Polysubstance abuse: In alcohol - rehab. 4. HIV disease 5. Hepatitis C and H/O Cirrhosis 6. History of pancreatitis. OAC initiated. Increasing negative chronotrophic agents for ventricular rate control. EP/Cardiology follow up to Consider CV vs CTI ablation in 30 days. Recheck LVEF after adequate VR control. To assess candidacy for senior living ICD prophylaxis of SCD.
--- NOTE | 2020-01-30 16:41 | CON ---
DATE OF CONSULTATION: 01/29/2020 HISTORY OF PRESENT ILLNESS: I am seeing Mr. Cullen at our [facility] telemetry floor as electrophysiology automotive service consultant. His problems are 1. Newly found atrial flutter with rapid ventricular rate on an EKG from 01/26/2020 suggestive of typical isthmus dependent atrial flutter. Subsequently, adequate rate control. 2. Newly found cardiomyopathy. a. Remote history of myocardial infarction and catheterization out of town in [facility], details unavailable, about 6 years ago. b. 2D echo from 01/28/2020 reveals LVEF 30% to 35% and moderate left atrial enlargement, mild MR, mild TR. 3. History of polysubstance abuse. a. Currently in rehab for EtOH abuse. b. History of methamphetamine and cocaine use in the past. c. Tobacco abuse. 4. HIV positivity, on treatment. 5. History of liver cirrhosis. 6. History of pancreatitis. 7. History of anxiety and depression. ALLERGIES: CODEINE. MEDICATIONS: At home included 1. Aspirin. 2. BuSpar. 3. Truvada. 4. Neurontin. 5. Zestril. 6. Lopressor. 7. Naprosyn. 8. Seroquel. 9. Isentress. SUBJECTIVE: Mr. Cullen is here due to increased heart rates noted by his rehab facility staff. He was transferred here from outgoing primary physician's office. He is though only visiting in town for 2 weeks rehab for alcohol abuse. He denies any major symptoms of rapid heart rate. He does not pass out. No stroke-like symptoms. No neurologic deficits are noted. He has no fever, chills, cough at this point. Denies PND or orthopnea. REVIEW OF SYSTEMS: Rest of 12-point system otherwise unremarkable. PAST MEDICAL HISTORY: As above. The patient had a history of health care administrator number of years ago but has not seen one recently. Also not aware of recent EKGs or cardiac evaluations. He was told in the past that he may have atrial fibrillation. The home medications include 1. Metoprolol succinate 50 mg a day. 2. Enalapril 2.5 mg daily. 3. Gabapentin. 4. Seroquel. 5. Buspirone. 6. Biktarvy HIV medication. 7. Naproxen. SOCIAL HISTORY: The patient has history of chronic smoking, remote IV methamphetamine and cocaine abuse, although denies for last 3 to 4 months and also has been off alcohol and tobacco for the last 2 weeks. FAMILY HISTORY: Unknown. PHYSICAL EXAMINATION: VITAL SIGNS: Blood pressure currently 103/69, heart rate 108, respiratory rate 20, temperature 98.7 degrees Fahrenheit. The initial blood pressures were 158/120, heart rate 96, temperature 97.7. GENERAL: Alert and oriented man, in no apparent distress. NECK: Supple. Jugular veins not distended. CHEST: Coarse without crackles. HEART: Sounds are irregularly irregular. S1, S2 variable. No murmur or gallop. ABDOMEN: Benign. Bowel sounds are positive. EXTREMITIES: Lower extremities without edema, clubbing, or cyanosis. Pulses are adequate. NEUROLOGIC: Nonfocal. MUSCULOSKELETAL: Without joint swelling or deformity. SKIN: Without rash. DATABASE: Reviewed. EKGs revealing a typical isthmus dependent atrial flutter conduction. Initially on December 30, 2019, narrow QRS is noted. QTC is prolonged at 532. Telemetry strips revealed continued atrial flutter, appears to be also typical isthmus dependent but with improving ventricular rate control. LABORATORY DATA: 2D echo as above. White cell count currently is 6, hemoglobin 4.64, platelet count is 150. INR 1.0. Sodium 136, potassium 4.2, BUN is 18, creatinine 0.98. Troponin I 0.[address] angio negative for pulmonary embolism. Considerable small airway disease both sides, mucus plugging in the right lung, ectasia of the thoracic aorta. The chest x- ray shows no active cardiopulmonary disease. ASSESSMENT AND PLAN: Mr. Cullen is a 59-year-old man with prior history of remote myocardial infarction many years ago with prior left heart catheterization with [facility] system. 1. He is here in town for alcohol rehab and he was found to have rapid heart rate. He was transferred to our facility and found to be in atrial flutter with raped ventricular rates. Rate control now better with increased dose of metoprolol and he feels to be still able to tolerate it reasonably well. He was also noted to have reduced LV EF in the 30% to 35% range, which is a new finding. Unfortunately, we do not have exact data from his prior cardiac issues in the past as he has not seen a health care administrator for a number of years. Results of prior left heart catheterization results may be helpful. Although, he was told he had atrial fibrillation, supposedly he is in regular rhythm most of the time. He is not markedly symptomatic regarding his arrhythmia. I discussed the mechanism of both atrial fibrillation and flutter with him and explained that although predominantly seen atrial flutter, he could have both kind of irregularity in view of his left atrial enlargement and his history. On the other hand, I explained the mechanism of atrial flutter and potential treatment options as well. I think it will be a strong consideration for him be anticoagulated for a month prior to any planned procedures to avoid stroke risk. We discussed option of continued rate control versus cardioversion versus cavotricuspid isthmus ablation with him at that time. 2. Newly found cardiomyopathy, unclear if it was pre-existing. He is a relatively poor historian. Data from [facility] should be requested. At this point, I would recommend standard heart failure therapy which he is already taking to some extent with beta-blockers, which should be maximized for adequate rate control as well as continued FREDO inhibitor therapy. Cardiology consultation or evaluation could be helpful in this regard. 3. History of polysubstance abuse. Cessation is strongly encouraged. He is already in a rehab program. 4. History of liver cirrhosis and mild QT prolongation - Will limit his antiarrhythmic medication choices. While arrhythmia risk persists,he has not exhibited significant ventricular ectopy in hospital. Consider life vest tank terminal gauger if LVEF does not improve with rate control, alcohol cessation and guideline directed medical therapy. Job ID: [id number] [facility]
[2020-01-31] MEDS ORDERED: Digoxin 0.25 MG TAB PO SCH (09:00)
--- NOTE | 2020-01-31 11:24 | EKG ---
Test Reason : Blood Pressure : / mmHG Vent. Rate : 122 BPM Atrial Rate : 122 BPM P-R Int : 000 ms QRS Dur : 098 ms QT Int : 374 ms P-R-T Axes : 000 070 075 degrees QTc Int : 532 ms Accelerated Junctional rhythm Nonspecific ST abnormality Abnormal ECG Confirmed by RUPERTO LIZARRAGA ([id number]), international editorial producer JULIO CESAR MCKEON ([id number]) on 01/31/2020 11:23:56 AM Referred By: Confirmed By:RUPERTO LIZARRAGA
[2020-02-01 21:07] LABS: Hep C PCR-Quant HCV Not Detected IU/mL (.)
== END 2020-01-30 15:50 | disposition home or self-care (01) | DRG 309 ==
LOC: ERS 19:45 → ERHOLD 01-27 01:11 → 2NO 01-27 18:03
PROVIDERS: ADMIT Internal Medicine; ATTEND Hospitalist
DX: I48.3 Typical atrial flutter (principal); B20 Human immunodeficiency virus [HIV] disease; I10 Essential (primary) hypertension; F41.9 Anxiety disorder, unspecified; Z20.828 Contact with and (suspected) exposure to other viral communicable diseases; F15.11 Other stimulant abuse, in remission; F10.11 Alcohol abuse, in remission; I08.1 Rheumatic disorders of both mitral and tricuspid valves; I42.9 Cardiomyopathy, unspecified; B19.20 Unspecified viral hepatitis C without hepatic coma; F14.11 Cocaine abuse, in remission; F17.210 Nicotine dependence, cigarettes, uncomplicated; F32.9 Major depressive disorder, single episode, unspecified; R79.89 Other specified abnormal findings of blood chemistry; Z71.6 Tobacco abuse counseling; Z88.8 Allergy status to other drugs, medicaments and biological substances; I25.2 Old myocardial infarction; Z71.51 Drug abuse counseling and surveillance of drug abuser
CPT/HCPCS: 36415; 71045; 71275; 80048; 80053; 80074; 80306; 81003; 82553; 83605; 83690; 83735; 84443; 84484; 85025; 85048; 85379; 85610; 85730; 86361; 87040; 87086; 87449; 87522; 87536; 87635; 87899; 93005; 93306; J0696; J1885; J2405; J3370; J3475; J3490; Q9967; U0003